=== PATIENT | female | born 1970 | race Caucasian/White ===

== ENCOUNTER 2023-12-23 11:58 | Outpatient (OUT) | payer OTHER, SELFPAY ==
--- NOTE | 2023-12-23 12:07 | XR_ITS ---
The [address] [address] Patient Name: SALMA AYOUB MRN: [id number] date: 1970 Sex: F Assigned Patient Location: RAD Current Patient Location: RAD Accession/Order Number: [id number] Exam Date: 12/23/2023 12:15 Report Date: 12/23/2023 16:03 At the request of: DREW MAYORGA Procedure: XR chest 2V EXAM: XR chest 2V HISTORY: Cough COMPARISON: 11/20/2020 TECHNIQUE: Upright PA and lateral chest x-ray FINDINGS: The heart is not enlarged and the vasculature is not distended. No acute infiltrate, effusion or pneumothorax is identified. A small calcified granuloma seen at the right lung base medially. There are very small nodular opacities are seen projecting over the right lung base laterally. Nipple shadows are noted. A faint nodular structure is suggested and left upper lung. The osseous structures are grossly intact. XR/XR chest 2V IMPRESSION: No acute infiltrate or evidence of cardiac decompensation. Additional small nodules are seen or suggested in the lungs. The etiology is uncertain. Further evaluation this patient with a CT scan of the chest may be helpful. Electronically authenticated by: JOSE E NOWAK Date: 12/23/2023 16:03
== END 2023-12-23 11:59 | disposition home or self-care (01) ==
PROVIDERS: PCP Family Medicine; Visit Provider Nurse Practitioner Family
DX: R05.9 Cough, unspecified (principal)
CPT/HCPCS: 71046